=== PATIENT | female | born 1930 | race Caucasian/White ===

== ENCOUNTER → 2016-06-19 | Outpatient (CLI) | payer OTHER ==
[~2016-06-19] MED LIST: ADULT LOW DOSE81 MG PO; ALBUTEROL NEB; ARICEPT 5 MG TAB5 MG PO; ASPIRIN325 PO; BROVANA15 MCG/2 M INH; CENTRUM SILVER1 EAC4 PO; FISHOIL PO; FOSAMAX 70 MG T70 MG PO; LOPRESSOR PO; LORTAB 5-500 T1 EAC1 PO; PRAVACHOL40 MG PO; PROAIR HFA8.5 GM; SPIRIVA INH; SYMBICORT160 MCG/4.
== END ==
LOC: RAD 14:22
DX: J44.9 Chronic obstructive pulmonary disease, unspecified (principal); J98.4 Other disorders of lung

== ENCOUNTER → 2016-10-23 | Outpatient (CLI) | payer OTHER | LOC: RAD 15:51 | DX: J44.9 Chronic obstructive pulmonary disease, unspecified (principal) ==

== ENCOUNTER → 2016-11-06 | Outpatient (CLI) | payer OTHER | LOC: SPEECH 08:30 | DX: R13.12 Dysphagia, oropharyngeal phase (principal); R13.14 Dysphagia, pharyngoesophageal phase; H61.22 Impacted cerumen, left ear; R49.0 Dysphonia ==

== ENCOUNTER 2017-01-10 17:52 | Emergency (ER) | payer OTHER ==
[~2017-01-10] VITALS: Ht 149.9 cm; Wt 40.8 kg
[2017-01-10 18:07] VITALS: BP 124/79
[2017-01-10] MEDS ORDERED: KEFLEX500 MG PO (18:53)
== END 2017-01-10 19:51 | disposition home or self-care (01) ==
LOC: ER 17:52
DX: S41.111A Laceration without foreign body of right upper arm, initial encounter (principal); I10 Essential (primary) hypertension; K21.9 Gastro-esophageal reflux disease without esophagitis; E78.5 Hyperlipidemia, unspecified; J44.9 Chronic obstructive pulmonary disease, unspecified; I25.2 Old myocardial infarction; I25.10 Atherosclerotic heart disease of native coronary artery without angina pectoris; F03.90 Unspecified dementia, unspecified severity, without behavioral disturbance, psychotic disturbance, mood disturbance, and anxiety; Z98.890 Other specified postprocedural states; Z87.891 Personal history of nicotine dependence; Z91.041 Radiographic dye allergy status; Z88.8 Allergy status to other drugs, medicaments and biological substances; Z91.010 Allergy to peanuts; Z91.012 Allergy to eggs; W54.8XXA Other contact with dog, initial encounter; Y93.89 Activity, other specified; Y92.89 Other specified places as the place of occurrence of the external cause; Y99.8 Other external cause status

== ENCOUNTER 2017-04-24 19:00 | Emergency (ER) | payer OTHER ==
[~2017-04-24] VITALS: Ht 147.3 cm; Wt 40.8 kg
--- NOTE | ~2017-04-24 | EKG ---
[place] [address] [facility] [place] [address] ELECTROCARDIOGRAM REPORT Name: ABNER RAI Room #: DEP [facility]#: [id number] Admission: 04/24/17 Attend Phys: Discharge: 04/24/17 Date of : 34 Report #: [id number] THIS REPORT FOR: //name// [facility] ED Test Date: 2017-04-24 Test Time: 20:58:23 Pat Name: ABNER RAI Department: Room: Gender: F [employer] Department: DOUGLAS Ruiz : 1930 Requested By: Manohar Gong Order Number: [id number] MD: Ede Howe Measurements Intervals [place] Rate: 87 P: 20 HI: 198 QRS: -50 QRSD: 86 T: 26 QT: 418 QTc: 503 Interpretive Statements Sinus rhythm Left anterior fascicular block Borderline T abnormalities, anterior leads Prolonged QT interval Baseline wander in multiple lead(s) Compared to ECG 12/12/2010 10:23:45 No significant change was found Electronically Signed On 04-25-2017 9:05:34 DIRECTOR NURSING SERVICE by Ede Howe [email or web address] <ELECTRONICALLY SIGNED> By: Ede Howe MD, [facility] 04/25/17904 57 57 Ede Howe MD, [facility] /EPI
[~2017-04-24 19:00] MED LIST changes: +KEFLEX500 MG PO
[2017-04-24 21:23] LABS: BASOPHILS 0.5 % (0.0-2.0); HEMOGLOBIN 14.7 gm/dL (12.0-15.0); MCHC 33.2 g/dL (28.0-37.0); MCV 93.8 fL (80.0-100.0); WBC 6.7 thou/uL (4.0-11.0)
[2017-04-24 21:25] LABS: ABSOLUTE NEUTROPHILS 5.6 thou/uL (1.4-8.2); EOSINOPHILS 0.3 % (0.0-3.0); HEMATOCRIT 44.3 % (37.0-47.0); LYMPHOCYTES 4.8 % (24.0-44.0); MCH 31.1 pg (26.0-34.0); MONOCYTES 10.9 % (1.0-8.0); POLYS 83.5 % (36.0-66.0); RBC 4.72 mil/uL (4.20-5.00); RDW 13.4 % (10.5-14.5)
[2017-04-24 21:34] LABS: ANION GAP 8 mmol/L (7-16); BUN 24 mg/dL (7-18); CALCIUM 9.2 mg/dL (8.5-10.1); CHLORIDE 102 mmol/L (98-107); CO2 31 mmol/L (21-32); CREATININE 0.8 mg/dL (0.6-1.0); GLUCOSE 116 mg/dL (74-106); SODIUM 141 mmol/L (136-145)
[2017-04-24 21:42] LABS: APTT 24.4 Seconds (24.5-32.8); PROTIME 9.7 Seconds (9.3-11.4)
[2017-04-24 21:43] LABS: ALBUMIN 3.4 g/dL (3.4-5.0); MAGNESIUM 2.2 mg/dL (1.8-2.4); SGOT 26 U/L (15-37); SGPT 35 U/L (30-65); TOTAL BILIRUBIN 0.2 mg/dL (<0.1-1.0); TOTAL PROTEIN 7.9 g/dL (6.4-8.2); TROPONIN-I < 0.04 ng/mL (<0.06)
[2017-04-24] MEDS ORDERED: PREDNISONE 20 M20 MG PO (21:53)
[2017-04-24] MEDS ORDERED: AUGMENTIN 500-1 EACH PO (21:53)
[2017-04-24 22:08] LABS: PLATELET COUNT 37 thou/uL (150-400)
== END 2017-04-24 22:29 | disposition home or self-care (01) ==
LOC: ER 19:00
PROVIDERS: Emergency Medicine
DX: J44.1 Chronic obstructive pulmonary disease with (acute) exacerbation (principal); K22.5 Diverticulum of esophagus, acquired; K21.9 Gastro-esophageal reflux disease without esophagitis; I10 Essential (primary) hypertension; E78.5 Hyperlipidemia, unspecified; F03.90 Unspecified dementia, unspecified severity, without behavioral disturbance, psychotic disturbance, mood disturbance, and anxiety; Z90.49 Acquired absence of other specified parts of digestive tract; Z90.710 Acquired absence of both cervix and uterus; Z88.8 Allergy status to other drugs, medicaments and biological substances; Z91.041 Radiographic dye allergy status; Z91.012 Allergy to eggs; Z91.018 Allergy to other foods; Z87.891 Personal history of nicotine dependence

== ENCOUNTER → 2018-06-13 | Outpatient (CLI) | payer OTHER ==
[~2018-06-13] MED LIST changes: +AUGMENTIN 500-1 EACH PO; +PREDNISONE 20 M20 MG PO
== END ==
LOC: RAD 13:49
DX: I70.0 Atherosclerosis of aorta (principal); M47.814 Spondylosis without myelopathy or radiculopathy, thoracic region; M85.88 Other specified disorders of bone density and structure, other site; M43.8X4 Other specified deforming dorsopathies, thoracic region